=== PATIENT | female | born 1940 | race Caucasian/White ===

== ENCOUNTER 2020-08-25 10:04 | Inpatient (IN) | payer MEDICAID ==
[~2020-08-25] VITALS: Ht 157.5 cm; Wt 52.6 kg
[~2020-08-25 10:04] MED LIST: APIX5TAB PO; ATOR20TA50 PO; CLOP75TA28 PO; DILT1TAB2 PO; LISI20TA28 PO; PANT40TA2 PO
[2020-08-25 10:51] LABS: Basophils # (auto) 0 10 ^3/uL (0-0.2); Basophils % (auto) 0.2 % (0.0-2.0); Eosinophils # (auto) 0.1 10 ^3/uL (0-0.8); Eosinophils % (auto) 0.4 % (0.0-7.0); Hematocrit 45.7 % (36.0-46.0); Hemoglobin 15.1 g/dL (12.2-16.2); Lymphocytes # (auto) 2.2 10 ^3/uL (0.4-5.4); Lymphocytes % (auto) 16.3 % (10.0-50.0); Mean Corpuscular Hgb Conc. 33.2 g/dL (32.0-36.0); Mean Corpuscular Volume 87.5 fL (80.0-100.0); Monocytes # (auto) 0.3 10 ^3/uL (0-1.3); Monocytes % (auto) 2.2 % (0.0-12.0); Neutrophils % (auto) 80.9 % (37.0-80.0); Nucleated Red Blood Cells % 0.1 %; Platelet Count (auto) 189 10^3/uL (140-450); Red Blood Cells 5.22 10^6/uL (4.0-5.20); Red Cell Distribution Width 14.7 % (11.8-14.3); White Blood Cell 13.5 10^3/uL (4.4-10.8)
[2020-08-25 11:01] LABS: Albumin 3.9 g/dL (3.4-5.0); Calcium 9.1 mg/dL (8.5-10.1); Potassium 3.3 mmol/L (3.5-5.1)
[2020-08-25 11:05] LABS: BUN/Creatinine Ratio 18.4; Bilirubin, Total 1.3 mg/dL (0.2-1.0); Total Protein 7.8 g/dL (6.4-8.2)
[2020-08-25] MEDS ORDERED: dilTIAZem 25 MG/5 ML VIAL IV ONE ×3 (12:00→21:15)
[2020-08-25 13:27] LABS: INR 1.08 (0.9-1.15); Partial Thromboplastin Time 26.2 sec (23.0-31.2)
[2020-08-25] MEDS ORDERED: POTASSIUM EFFERVESENT TAB 25 MEQ PO ONE ×2 (15:00→16:30)
[2020-08-25] MEDS ORDERED: HYDROcodone-ACET 5/325MG TAB PO PRN (15:30)
[2020-08-25] MEDS ORDERED: NITROGLYCERIN 0.4 MG SL TAB SL PRN (15:30)
[2020-08-25] MEDS ORDERED: ONDANSETRON HCL 4 MG/2 ML VIAL IV PRN (15:30)
[2020-08-25] MEDS ORDERED: DEXTROSE (50%) 50ML SYRG IV PRN (15:30)
[2020-08-25] MEDS ORDERED: MORPHINE SULF INJ 2 MG/ML SYRINGE 1ML IV PRN ×2 (15:30)
[2020-08-25] MEDS ORDERED: levoFLOXacin 500MG 100 ML IV ONE (15:36)
[2020-08-25 15:45] VITALS: BP 220/96
[2020-08-25] MEDS: ACCU-CHEK COMFORT CURVE STRIP VI SCH (18:00)
[2020-08-25] MEDS: InsuLIN REG 1unit/0.01ml Soln (100units/ml) SC SCH (18:00)
[2020-08-25] MEDS: LEVALBUTEROL HCL 1.25 MG/3 ML NEB NEB SCH (18:36)
[2020-08-25] MEDS: IPRATROPIUM BROM 0.5 MG/2.5ML INH SOL NEB SCH (18:36)
[2020-08-25] MEDS: RIVAROXABAN 15 MG TAB PO SCH (20:06)
[2020-08-25 21:00] VITALS: BP 154/92
[2020-08-25 21:40] VITALS: BP 154/92
[2020-08-25] MEDS: ATORVASTATIN 20 MG TAB PO SCH (21:47)
[2020-08-25] MEDS: CLINDAMYCIN 300MG IV 50 ML IV SCH (21:47)
[2020-08-26] MEDS: ACCU-CHEK COMFORT CURVE STRIP VI SCH ×5 (00:17→23:30)
[2020-08-26] MEDS ORDERED: RIVA10TA PO (00:37)
[2020-08-26] MEDS ORDERED: METO25TA5 PO (00:37)
[2020-08-26] MEDS ORDERED: FAMO-12 PO (00:37)
[2020-08-26] MEDS: LEVALBUTEROL HCL 1.25 MG/3 ML NEB NEB SCH ×4 (00:41→19:39)
[2020-08-26] MEDS: IPRATROPIUM BROM 0.5 MG/2.5ML INH SOL NEB SCH ×4 (00:41→19:39)
[2020-08-26] MEDS: CLINDAMYCIN 300MG IV 50 ML IV SCH ×3 (05:07→21:39)
[2020-08-26] MEDS: InsuLIN REG 1unit/0.01ml Soln (100units/ml) SC SCH ×5 (05:08→23:30)
[2020-08-26 05:18] LABS: Basophils # (auto) 0.1 10 ^3/uL (0-0.2); Basophils % (auto) 0.5 % (0.0-2.0); Eosinophils # (auto) 0 10 ^3/uL (0-0.8); Hematocrit 42.4 % (36.0-46.0); Hemoglobin 14.3 g/dL (12.2-16.2); Lymphocytes # (auto) 2.7 10 ^3/uL (0.4-5.4); Lymphocytes % (auto) 20.3 % (10.0-50.0); Mean Corpuscular Hemoglobin 29.3 pg (28.0-32.0); Mean Corpuscular Hgb Conc. 33.6 g/dL (32.0-36.0); Mean Corpuscular Volume 87.1 fL (80.0-100.0); Monocytes # (auto) 0.8 10 ^3/uL (0-1.3); Monocytes % (auto) 5.6 % (0.0-12.0); Neutrophils # (auto) 9.9 10 ^3/uL (1.6-8.6); Neutrophils % (auto) 73.6 % (37.0-80.0); Nucleated Red Blood Cells % 0.1 %; Platelet Count (auto) 183 10^3/uL (140-450); Red Blood Cells 4.87 10^6/uL (4.0-5.20); Red Cell Distribution Width 14.8 % (11.8-14.3); White Blood Cell 13.4 10^3/uL (4.4-10.8)
[2020-08-26 05:39] LABS: Calcium 8.7 mg/dL (8.5-10.1); Potassium 4.3 mmol/L (3.5-5.1)
[2020-08-26 05:42] LABS: BUN/Creatinine Ratio 26.6
[2020-08-26 05:43] VITALS: BP 157/70
[2020-08-26 09:00] VITALS: BP 112/67
[2020-08-26] MEDS ORDERED: FAMOTIDINE 20 MG TAB PO SCH (10:00)
[2020-08-26] MEDS ORDERED: DILTIAZEM HCL 120 MG PO SCH (10:00)
[2020-08-26] MEDS: levoFLOXacin 250MG 50 ML IV SCH (10:23)
[2020-08-26] MEDS: FAMOTIDINE 20 MG TAB PO SCH (10:23)
[2020-08-26] MEDS: dilTIAZem 120MG ER CAP PO SCH (10:24)
[2020-08-26] MEDS: LISINOPRIL 20 MG TAB PO SCH (10:24)
[2020-08-26] MEDS: PANTOPRAZOLE 40 MG TAB PO SCH (10:24)
[2020-08-26] MEDS: CLOPIDOGREL BISULFATE 75 MG TAB PO SCH (10:24)
[2020-08-26 12:42] VITALS: BP 116/67
[2020-08-26] MEDS ORDERED: LORazepam 2MG/ML-1ML VIAL IV PRN (13:45)
[2020-08-26 15:47] LABS: Cholesterol 118 mg/dL (< 200); HDL Cholesterol 52 mg/dL (40-59); LDL Cholesterol 58 mg/dL (< 100); Triglycerides 120 mg/dL (< 150)
[2020-08-26 17:00] VITALS: BP 135/81
[2020-08-26] MEDS: RIVAROXABAN 15 MG TAB PO SCH (18:22)
[2020-08-26 20:00] VITALS: BP 133/59
[2020-08-26] MEDS: ATORVASTATIN 20 MG TAB PO SCH (21:38)
[2020-08-26] MEDS: METOPROLOL TARTRATE 25 MG TAB PO SCH (21:38)
[2020-08-27] MEDS: IPRATROPIUM BROM 0.5 MG/2.5ML INH SOL NEB SCH ×4 (00:36→19:30)
[2020-08-27] MEDS: LEVALBUTEROL HCL 1.25 MG/3 ML NEB NEB SCH ×4 (00:37→19:30)
[2020-08-27 05:00] VITALS: BP 126/65
[2020-08-27] MEDS: CLINDAMYCIN 300MG IV 50 ML IV SCH ×3 (05:58→21:42)
[2020-08-27] MEDS: ACCU-CHEK COMFORT CURVE STRIP VI SCH ×3 (05:58→18:00)
[2020-08-27] MEDS: InsuLIN REG 1unit/0.01ml Soln (100units/ml) SC SCH ×3 (06:00→18:00)
[2020-08-27 06:04] LABS: Basophils # (auto) 0 10 ^3/uL (0-0.2); Basophils % (auto) 0.3 % (0.0-2.0); Eosinophils # (auto) 0 10 ^3/uL (0-0.8); Eosinophils % (auto) 0.5 % (0.0-7.0); Hematocrit 37.6 % (36.0-46.0); Lymphocytes # (auto) 2.2 10 ^3/uL (0.4-5.4); Lymphocytes % (auto) 25.4 % (10.0-50.0); Mean Corpuscular Hemoglobin 30.4 pg (28.0-32.0); Mean Corpuscular Hgb Conc. 34.6 g/dL (32.0-36.0); Mean Corpuscular Volume 87.8 fL (80.0-100.0); Monocytes # (auto) 0.5 10 ^3/uL (0-1.3); Monocytes % (auto) 6.1 % (0.0-12.0); Neutrophils # (auto) 5.8 10 ^3/uL (1.6-8.6); Neutrophils % (auto) 67.7 % (37.0-80.0); Nucleated Red Blood Cells % 0.1 %; Platelet Count (auto) 161 10^3/uL (140-450); Red Blood Cells 4.28 10^6/uL (4.0-5.20); Red Cell Distribution Width 14.8 % (11.8-14.3); White Blood Cell 8.5 10^3/uL (4.4-10.8)
[2020-08-27 06:32] LABS: BUN/Creatinine Ratio 21.1; Calcium 8.7 mg/dL (8.5-10.1); Potassium 3.9 mmol/L (3.5-5.1)
[2020-08-27 09:00] VITALS: BP 129/60
[2020-08-27] MEDS: levoFLOXacin 250MG 50 ML IV SCH (09:41)
[2020-08-27] MEDS: CLOPIDOGREL BISULFATE 75 MG TAB PO SCH (09:42)
[2020-08-27] MEDS: METOPROLOL TARTRATE 25 MG TAB PO SCH ×2 (09:42→21:42)
[2020-08-27] MEDS: dilTIAZem 120MG ER CAP PO SCH (09:42)
[2020-08-27] MEDS: PANTOPRAZOLE 40 MG TAB PO SCH (09:43)
[2020-08-27] MEDS: LISINOPRIL 20 MG TAB PO SCH (09:43)
[2020-08-27] MEDS ORDERED: ALPRAZolam 0.5 MG TAB PO PRN (12:15)
[2020-08-27 13:00] VITALS: BP 135/85
[2020-08-27 17:00] VITALS: BP 110/59
[2020-08-27] MEDS: RIVAROXABAN 15 MG TAB PO SCH (18:00)
[2020-08-27] MEDS: ATORVASTATIN 20 MG TAB PO SCH (21:42)
[2020-08-27 22:00] VITALS: BP 133/78
[2020-08-28] MEDS: ACCU-CHEK COMFORT CURVE STRIP VI SCH ×5 (00:06→23:34)
[2020-08-28] MEDS: IPRATROPIUM BROM 0.5 MG/2.5ML INH SOL NEB SCH ×4 (00:22→18:55)
[2020-08-28] MEDS: LEVALBUTEROL HCL 1.25 MG/3 ML NEB NEB SCH ×4 (00:22→18:55)
[2020-08-28 05:00] VITALS: BP 114/72
[2020-08-28] MEDS: CLINDAMYCIN 300MG IV 50 ML IV SCH ×3 (05:55→21:29)
[2020-08-28] MEDS: InsuLIN REG 1unit/0.01ml Soln (100units/ml) SC SCH ×5 (05:56→23:35)
[2020-08-28 08:41] VITALS: BP 151/73
[2020-08-28 09:40] VITALS: BP 151/73
[2020-08-28] MEDS: levoFLOXacin 250MG 50 ML IV SCH (10:23)
[2020-08-28] MEDS: FAMOTIDINE 20 MG TAB PO SCH (10:24)
[2020-08-28] MEDS: CLOPIDOGREL BISULFATE 75 MG TAB PO SCH (10:25)
[2020-08-28] MEDS: LISINOPRIL 20 MG TAB PO SCH (10:26)
[2020-08-28] MEDS: METOPROLOL TARTRATE 25 MG TAB PO SCH ×2 (10:27→21:30)
[2020-08-28] MEDS: PANTOPRAZOLE 40 MG TAB PO SCH (10:27)
[2020-08-28] MEDS: dilTIAZem 120MG ER CAP PO SCH (10:28)
[2020-08-28 13:00] VITALS: BP 157/81
[2020-08-28 16:41] VITALS: BP 136/60
[2020-08-28] MEDS: RIVAROXABAN 15 MG TAB PO SCH ×2 (18:23→18:24)
[2020-08-28] MEDS: ATORVASTATIN 20 MG TAB PO SCH (21:30)
[2020-08-28 22:00] VITALS: BP 128/67
[2020-08-29] MEDS: LEVALBUTEROL HCL 1.25 MG/3 ML NEB NEB SCH ×3 (00:10→12:05)
[2020-08-29] MEDS: IPRATROPIUM BROM 0.5 MG/2.5ML INH SOL NEB SCH ×3 (00:10→12:05)
[2020-08-29 05:00] VITALS: BP 118/80
[2020-08-29] MEDS: ACCU-CHEK COMFORT CURVE STRIP VI SCH ×2 (05:55→12:52)
[2020-08-29] MEDS: InsuLIN REG 1unit/0.01ml Soln (100units/ml) SC SCH ×2 (05:55→12:00)
[2020-08-29] MEDS: CLINDAMYCIN 300MG IV 50 ML IV SCH ×2 (05:55→14:20)
[2020-08-29 08:36] VITALS: BP 159/86
[2020-08-29] MEDS: dilTIAZem 120MG ER CAP PO SCH (11:30)
[2020-08-29] MEDS: CLOPIDOGREL BISULFATE 75 MG TAB PO SCH (11:31)
[2020-08-29] MEDS: LISINOPRIL 20 MG TAB PO SCH (11:32)
[2020-08-29] MEDS: PANTOPRAZOLE 40 MG TAB PO SCH (11:32)
[2020-08-29] MEDS: METOPROLOL TARTRATE 25 MG TAB PO SCH (11:33)
[2020-08-29] MEDS: levoFLOXacin 250MG 50 ML IV SCH (11:34)
[2020-08-29] MEDS ORDERED: LEVO500T31 PO (11:44)
[2020-08-29] MEDS ORDERED: METF-489 PO (11:44)
[2020-08-29 13:11] VITALS: BP 153/78
[2020-08-29 14:57] VITALS: BP 153/78
[2020-08-29 16:18] VITALS: BP 156/82
[2020-08-29 17:05] LABS: Urine Bacteria NONE SEEN /hpf (None Seen); Urine Blood Negative /uL (Negative); Urine Specific Gravity 1.006 (1.001-1.035); Urine WBC 3 /hpf (0 - 5)
== END 2020-08-29 17:20 | disposition home or self-care (01) | DRG 201 ==
LOC: ER 10:04 → TELE 15:23 → TELE-WESTW 20:46
PROVIDERS: ADMIT Nurse Practitioner Acute Care; ATTEND Internal Medicine Nephrology
DX: I48.91 Unspecified atrial fibrillation (principal); J18.9 Pneumonia, unspecified organism; I31.3 Pericardial effusion (noninflammatory); E11.65 Type 2 diabetes mellitus with hyperglycemia; I11.0 Hypertensive heart disease with heart failure; R65.10 Systemic inflammatory response syndrome (SIRS) of non-infectious origin without acute organ dysfunction; I50.22 Chronic systolic (congestive) heart failure; Z66 Do not resuscitate; E87.6 Hypokalemia; G25.2 Other specified forms of tremor; E78.5 Hyperlipidemia, unspecified; F03.90 Unspecified dementia, unspecified severity, without behavioral disturbance, psychotic disturbance, mood disturbance, and anxiety; I65.23 Occlusion and stenosis of bilateral carotid arteries; Z86.73 Personal history of transient ischemic attack (TIA), and cerebral infarction without residual deficits; Z20.822 Contact with and (suspected) exposure to COVID-19; F17.200 Nicotine dependence, unspecified, uncomplicated; I48.92 Unspecified atrial flutter; Z79.01 Long term (current) use of anticoagulants; Z79.02 Long term (current) use of antithrombotics/antiplatelets; Z79.899 Other long term (current) drug therapy; Z83.3 Family history of diabetes mellitus
CPT/HCPCS: 36415; 70450; 70551; 71045; 80048; 80053; 80061; 81001; 82607; 82962; 83036; 83735; 84443; 85025; 85610; 85730; 87040; 87426; 92610; 93005; 93306; 93886; 94640; 96365; 96375; 96376; 97110; 97116; 97530; G0378; J1815; J1956; J2405; J3490